=== PATIENT | female | born 1965 | race Caucasian/White ===

== ENCOUNTER 2016-11-06 04:47 | Emergency (ER) | payer OTHER ==
[~2016-11-06] VITALS: Ht 162.6 cm; Wt 154.2 kg
--- NOTE | ~2016-11-06 | EKG ---
[place] [address] [facility] [place] [address] ELECTROCARDIOGRAM REPORT Name: MG KEARNS Room #: [facility]P [id number] Admission: 11/06/16 Attend Phys: Discharge: 11/06/16 Date of : 67 Report #: [id number] THIS REPORT FOR: //name// [facility] ED Test Date: 2016-11-06 Test Time: 04:58:57 Pat Name: MG KEARNS Department: Room: Gender: F Laboratory Monitor: LYUDMILA : 1965 Requested By: Jazmin Mcdaniel Order Number: [id number] MD: Armand Denny Measurements Intervals [place] Rate: 65 P: 38 [place]: 153 QRS: 92 QRSD: 95 T: 57 QT: 410 QTc: 427 Interpretive Statements Sinus rhythm Borderline right axis deviation Poor R wave progression Compared to ECG 12/19/2015 13:36:52 [place] is shifted rightward Electronically Signed On 11-06-2016 9:07:15 CDT by Armand Denny [email or web address] <ELECTRONICALLY SIGNED> By: Armand Denny MD, [facility] 11/06/16 0907 D: 09/457 045 Armand Denny MD, FACC /EPI
[~2016-11-06 04:47] MED LIST: ACCUNEB0.63 MG/3 INH; ADVAIR 250-501 EACH INH; ADVAIRDISKUS; ALBUTEROL INH; ALBUTEROL2.5 MG/0.1 INH; ALBUTEROL2.5 MG/0.5 INH; ALBUTEROL2.5 MG/31 INH; ALLEGRA ALLERG180 MG PO; AMARYL2 M1 PO; AVELOX 400 MG400 M1; AVELOX 400 MG400 MG PO; BACTRIM DS TAB1 EACH PO; BROVANA15 MCG/2 M IH; BROVANA15 MCG/2 M INH; BUDESONIDE0.5 MG/2 M IH; BYETTA PEN 11 PENIN1 SUBQ; CARVEDILOL6.25 MG PO; CEFTIN500 MG PO; CLARITIN10 M2 PO; COMBIVENT; COMBIVENT RESPIM4 GM INH; COUMADIN 2 MG TA2 M1 PO; COUMADIN 5 MG TA5 M1 PO; DIOVAN320 MG PO; DOXYCYCLINE 10100 M2 PO; DOXYCYCLINE 10100 MG PO; DULERA 200 MCG/13 GM INH; DUONEB 2.5-0.5 M3 ML INH; DYAZIDE PO; FAMOTIDINE20 MG PO; FIBER LAX625 MG PO; FIBERCON625 M1 PO; FLEXERIL PO; FLONASE16 GM INH; FLONASE16 GM NASAL; GLUMETZA500 PO; HYDROCHLOROTHIA25 M1 PO; HYDROCODON-ACE1 EAC7 PO; HYDROXYZINE HCL25 M2 PO; IBUPROFEN 400400 M2 PO; LASIX 40 MG TAB40 M1 PO; LEVAQUIN 500 M500 M2 PO; LEVAQUIN 500 M500 M5 PO; LEVEMIR SUBQ; LEVEMIR100 UNIT/1 SUBQ; LIDODERM 5%1 PATCH TOP; LISINOPRIL10 MG PO; LISINOPRIL20 MG PO; LISINOPRIL40 MG PO; LISINOPRIL5 MG PO; LOVENOX SQ; LOVENOX SUBQ; MACROBID 100 M100 M1 PO; MELOXICAM7.5 MG PO; METFORMIN HCL500 MG PO; MILLIPRED DP5 M1 PO; MUCINEX TA600 MG/TA1 PO; MUCINEX TA600 MG/TA2 PO; NORCO 5-325 TA1 EACH PO; NOVOLOG FL100 UNIT/M SUBQ; NOVOLOG100 UNIT/1 SUBQ; NOVOLOG100 UNIT/M SUBQ; OS-CAL 500+D C1 EACH PO; OS-CAL 500+D31 EACH PO; PERCOCET; PERCOCET 5-3251 EACH PO; POTASSIUM20 PO; PREDNISONE 10 M10 M1; PREDNISONE 10 M10 M1 PO; PREDNISONE 10 M10 MG PO; PREDNISONE 20 M20 M1 PO; PREDNISONE 20 M20 MG PO; PREDNISONE 5 MG5 M1 PO; PREDNISONE 5 MG5 MG; PREDNISONE50 MG PO; PRENATAL; PROAIR HFA8.5 GM INH; PULMICORT0.5 MG/2 M INH; RANITIDINE 150150 M1 PO; SINGULAIR 10 MG10 M1 PO; SINGULAIR PO; SPIRIVA18 MCG INH; TESSALON PERLE100 M1 PO; TOUJEO SOL300 UNIT/1 SQ; TRAMADOL 50 MG50 MG PO; TRIAMTERENE-HC1 EAC1 PO; TUMS PO; TYLENOL325 MG PO; ULTRAM50 MG PO; VENTOLIN HFA INH8 GM INH; VICODIN 5-5001 EACH PO; VICODIN PO; VICTOZA0.6 MG/0.1 SUBQ; VITAMIN D250000 UNIT; VITAMIN E400 UNI3 PO; XOLAIR; XOLAIR IV; XOLAIR150 MG SUBQ; ZADITOR5 M1 OPHTHALMIC; ZOLAIR SUBQ; ZYRTEC10 M2 PO
[2016-11-06 05:26] LABS: HEMATOCRIT 42.3 % (37.0-47.0); HEMOGLOBIN 13.7 gm/dL (12.0-15.0); MCH 26.8 pg (26.0-34.0); MCHC 32.4 g/dL (28.0-37.0); MCV 82.6 fL (80.0-100.0); PLATELET COUNT 302 thou/uL (150-400); RBC 5.12 mil/uL (4.20-5.00); RDW 15.9 % (10.5-14.5); WBC 10.2 thou/uL (4.0-11.0)
[2016-11-06 05:28] LABS: MANUAL DIFF YES
[2016-11-06 05:38] LABS: ANION GAP 8 mmol/L (7-16); BUN 20 mg/dL (7-18); CALCIUM 9.9 mg/dL (8.5-10.1); CHLORIDE 88 mmol/L (98-107); CO2 31 mmol/L (21-32); CREATININE 1.3 mg/dL (0.6-1.0); SODIUM 127 mmol/L (136-145)
[2016-11-06 05:42] LABS: GLUCOSE 637 mg/dL (74-106)
[2016-11-06 05:43] LABS: TROPONIN-I < 0.04 ng/mL (<0.04-0.07)
[2016-11-06 05:55] LABS: URINE BILIRUBIN NEGATIVE (Negative); URINE BLOOD NEGATIVE (Negative); URINE COLOR COLORLESS; URINE GLUCOSE-RANDOM* 3+ (Negative); URINE KETONES NEGATIVE (Negative); URINE LEUKOCYTES-REFLEX NEGATIVE (Negative); URINE PROTEIN (DIPSTICK) NEGATIVE (Negative); URINE SPECIFIC GRAVITY <= 1.005 (1.003-1.035); URINE UROBILINOGEN 0.2 E.U./dl (0.2-1.0)
[2016-11-06 06:10] LABS: ANISOCYTOSIS SLIGHT; TOTAL CELL COUNT 100
== END 2016-11-06 08:56 | disposition home or self-care (01) ==
LOC: ER 04:47
PROVIDERS: Emergency Medicine
DX: E11.65 Type 2 diabetes mellitus with hyperglycemia (principal); R07.89 Other chest pain; J45.909 Unspecified asthma, uncomplicated; G47.30 Sleep apnea, unspecified; E66.9 Obesity, unspecified; K21.9 Gastro-esophageal reflux disease without esophagitis; Z86.2 Personal history of diseases of the blood and blood-forming organs and certain disorders involving the immune mechanism; Z86.14 Personal history of Methicillin resistant Staphylococcus aureus infection; Z86.711 Personal history of pulmonary embolism; Z79.4 Long term (current) use of insulin; Z91.040 Latex allergy status; Z88.7 Allergy status to serum and vaccine; Z88.5 Allergy status to narcotic agent; Z88.0 Allergy status to penicillin; Z91.011 Allergy to milk products

== ENCOUNTER 2017-05-15 16:43 | Emergency (ER) | payer OTHER ==
[~2017-05-15] VITALS: Ht 162.6 cm; Wt 181.4 kg
[2017-05-15 18:36] LABS: HEMOGLOBIN 13.2 gm/dL (12.0-15.0); MCH 26.5 pg (26.0-34.0); MCHC 32.3 g/dL (28.0-37.0); MCV 81.9 fL (80.0-100.0); RDW 14.9 % (10.5-14.5); WBC 12.6 thou/uL (4.0-11.0)
[2017-05-15 18:45] LABS: CREATININE 1.1 mg/dL (0.6-1.0)
[2017-05-15] MEDS ORDERED: NORCO 5-325 TA1 EACH PO (21:22)
[2017-05-15 22:18] VITALS: BP 110/62
== END 2017-05-15 22:20 | disposition home or self-care (01) ==
LOC: ER 16:43
PROVIDERS: Emergency Medicine
DX: S52.125A Nondisplaced fracture of head of left radius, initial encounter for closed fracture (principal); S81.812A Laceration without foreign body, left lower leg, initial encounter; E11.9 Type 2 diabetes mellitus without complications; J45.909 Unspecified asthma, uncomplicated; G47.30 Sleep apnea, unspecified; K21.9 Gastro-esophageal reflux disease without esophagitis; E66.9 Obesity, unspecified; Z86.2 Personal history of diseases of the blood and blood-forming organs and certain disorders involving the immune mechanism; Z86.14 Personal history of Methicillin resistant Staphylococcus aureus infection; Z68.44 Body mass index [BMI] 60.0-69.9, adult; Z91.040 Latex allergy status; Z88.5 Allergy status to narcotic agent; Z88.0 Allergy status to penicillin; Z88.7 Allergy status to serum and vaccine; Z91.011 Allergy to milk products; Z79.4 Long term (current) use of insulin; Z88.8 Allergy status to other drugs, medicaments and biological substances; V89.2XXA Person injured in unspecified motor-vehicle accident, traffic, initial encounter; Y93.89 Activity, other specified; Y92.89 Other specified places as the place of occurrence of the external cause; Y99.8 Other external cause status

== ENCOUNTER 2017-07-01 23:01 | Inpatient (IN) | payer OTHER ==
[~2017-07-01] VITALS: Ht 162.6 cm; Wt 147.8 kg
--- NOTE | ~2017-07-01 | EKG ---
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
--- NOTE | ~2017-07-01 | 2DMMODE ---
[facility] [place] [address] 2 D/M-MODE ECHOCARDIOGRAM Name: MG KEARNS Room #: 209-P ADM IN M.R.#: [id number] Admission: 07/02/17 Attend Phys: Shakeel Alba, Discharge: Date of : 67 Date of Service: 07/03/17 1221 Report #: [id number] THIS REPORT FOR: //name// APPROVED REPORT Study performed: 07/02/2017 10:43:39 EXAM: Comprehensive 2D, Doppler, and color-flow Echocardiogram Patient Location: Echo lab Room #: 209 Status: routine BSA: 2.40 HR: 90 bpm BP: 132/78 mmHg Other Information Study Quality: Fair Technically limited study due to body habitus, inability to position patient. Indications Diabetes Chest Pain Hypertension/HDD Echo Enhancing Agent Indication: Endocardial border delineation Agent(s) / Amount(s) Used: Optison 4 cc Left Ventricle Left ventricle is at the upper limits of normal. Regional wall motion is not well visualized but grossly normal. There is normal left ventricular wall thickness. The left ventricular systolic function is normal. The left ventricular ejection fraction is within the normal range. LVEF is 55-60%. The left ventricular diastolic function is normal. Right Ventricle Right ventricle is not well visualized. The right ventricle appears normal size. The right ventricular systolic function is normal. Atria The left atrium size is normal. The right atrium size is normal. [facility] [address] [place] [address] 2 D/M-MODE ECHOCARDIOGRAM Name: MG KEARNS Room #: 209-P ADM IN M.R.#: [id number] Admission: 07/02/17 Attend Phys: Shakeel Alba, Discharge: Date of : 67 Date of Service: 07/03/17 1221 Report #: [id number] Aortic Valve The aortic valve is not well visualized. The aortic valve appears normal in structure. No aortic regurgitation is present. There is no aortic valvular stenosis. Mitral Valve The mitral valve is normal in structure. There is no mitral valve regurgitation noted. No evidence of mitral valve stenosis. Tricuspid Valve The tricuspid valve is normal in structure. There is no tricuspid valve regurgitation noted. Pulmonic Valve The pulmonary valve is normal in structure. There is no pulmonic valvular regurgitation. Great Vessels The aortic root is normal in size. IVC is not well visualized. Pericardium There is no pericardial effusion. <Conclusion> The left ventricular systolic function is normal. Regional wall motion is not well visualized but grossly normal. LVEF 55-60%. Normal diastolic function The aortic valve appears normal in structure. No aortic regurgitation or stenosis The mitral valve is normal in structure. No mitral valve regurgitation noted. Pulmonary artery pressure could not be reliably ascertained There is no pericardial effusion. <ELECTRONICALLY SIGNED> By: Armand Denny MD, [facility] 07/03/17 122 122 20 Armand Denny MD, FAC /INF
--- NOTE | ~2017-07-01 | HC ---
[facility] [place] [address] CONSULTATION Name: MG KEARNS Room #: 209-P [facility] IN M.R.#: [id number] Admission: 07/02/17 Attend Phys: Shakeel Alba DO Discharge: 07/03/17 Date of : 67 Report #: [id number] THIS REPORT FOR: //name// CC: Ember Alba DATE OF SERVICE: 07/02/2017 HISTORY OF PRESENT ILLNESS: The patient is a 52-year-old female, came in with some fever, chills, shortness of breath and chest pain. I am asked to evaluate her for the chest pain. I apparently have seen her a couple of years ago, had an abnormal nuclear test and subsequently a cardiac catheterization. We are trying to obtain that record. But no intervention was undertaken. I believe it was an anterior infarct that was artifactual because of her body habitus. She had lost to follow up with me anyway. She does see Dr. Cordero. 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 Nonspecific EKG changes and negative troponin. Her H and H is 11.7 and 36.2. Her sugar is elevated at 370. Her white count was 15,000. Potassium 4.5, creatinine 1.2, glucose 410 and now 370, magnesium low at 1.7. The urinary tract UA looked unremarkable. Her white count is up to 17.2 this morning. Liver function tests are relatively unremarkable except mildly elevated alkaline phosphatase. She has had some nausea, vomiting, diarrhea the last couple of days and has been very sedentary. HOME MEDICATIONS: Lisinopril 40 b.i.d., HCTZ 25, hydrocodone, insulin, Victoza and had been on some Ceftin as well as prednisone, Lasix 40 mg, ibuprofen, Mirta, hydroxyzine p.r.n., recently started on tacrolimus 1 mg a day and Zyrtec 10, Singulair, Flonase, and Zaditor ophthalmic. ALLERGIES: TETANUS, CODEINE, PENICILLIN, LATEX AND ADHESIVE TAPE. SOCIAL HISTORY: She is with 4 children. No current alcohol or tobacco of significance. FAMILY HISTORY: Negative for premature coronary artery disease. REVIEW OF SYSTEMS: Negative with the exception as stated above and just extreme fatigue and weakness and she has been weaned off of the prednisone. PHYSICAL EXAMINATION: GENERAL: She is alert. She is still somewhat febrile. She does not feel well, she states. VITAL SIGNS: Blood pressure is 150/84, pulse is 110. HEENT: Eyes reveal xanthelasmas. Pharynx is clear. NECK: Shows preserved upstrokes without JVD or bruits. LUNGS: Do have diffuse wheezes throughout, predominantly end inspiratory. [facility] [address] [place] [address] CONSULTATION Name: MG KEARNS Room #: 209-P DIS IN M.R.#: [id number] Admission: 07/02/17 Attend Phys: Shakeel Alba DO Discharge: 07/03/17 Date of : 67 Report #: [id number] CARDIAC: Distant heart tones, S1, S2. ABDOMEN: Markedly obese and diffusely tender, but no rigidity or rebound. EXTREMITIES: Reveal some trace of edema. I cannot palpate the distal pulses. NEUROLOGIC: Intact. MUSCULOSKELETAL: Generalized arthritic changes. Mild valgus deformity of the knees. SKIN: Warm and dry without ulcer formation. ASSESSMENT: 1. Suspect possible febrile syndrome, viral. 2. Chest pain of unclear significance, possible consideration of pulmonary embolism (based on prior history of pulmonary embolism and had been very sedentary for the last 3-4 days). 3. Rule out coronary artery disease. 4. Hypertension. 5. Hypercholesterolemia. 6. Obesity. 7. Diabetes. RECOMMENDATIONS AND PLAN: We will obtain echo Doppler to assess left ventricular function, looking for right-sided enlargement. Repeat EKG. Troponin is negative, would do ultrasound of lower extremities and CTA of the chest to rule out a pulmonary embolism based on her history and states that this pain was somewhat reminiscent of the chest pain she had with her pulmonary embolism, which was 7-8 years ago. Consideration of nuclear stress testing if the above is all negative. I will review the films from 2 years ago; they are not available currently, but I expect to get the CDs today. I do not recall that she had any significant coronary artery disease, so coronary artery disease seems less likely, that things would have progressed in the last 2 years. We will continue to follow up with you. Thank you for allowing us to assist in the care of this patient. <ELECTRONICALLY SIGNED> By: Juan Rodríguez MD, [facility] 07/04/17899 52 Juan Rodríguez MD, FACC /nt
--- NOTE | ~2017-07-01 | EKG ---
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 : 1965 Requested By: Dante Tracey Order Number: [id number] MD: Armand Denny Measurements Intervals [place] Rate: 128 P: 47 [place]: 175 QRS: -46 QRSD: 82 T: 132 QT: 263 QTc: 384 Interpretive Statements Sinus tachycardia Left anterior fascicular block Poor R wave progression Nonspecific ST and T wave abnormality Compared to ECG 11/06/2016 04:58:57 Left anterior fascicular block now present Nonspecific change in the ST and T-wave segments Electronically Signed On 07-02-2017 8:00:01 CDT by Armand Denny [email or web address] <ELECTRONICALLY SIGNED> By: Armand Denny MD, [facility] 07/02/1700 2310 2310 Armand Denny MD, [facility] /EPI
[2017-07-01 23:09] VITALS: BP 157/88
[2017-07-01] MEDS ORDERED: LANTUS100 UNIT/M SUBQ (23:18)
[2017-07-01] MEDS ORDERED: ZYRTEC10 M5 PO (23:19)
[2017-07-01] MEDS ORDERED: ASTAGRAF XL1 MG PO (23:19)
[2017-07-01 23:48] LABS: ABSOLUTE NEUTROPHILS 15.4 thou/uL (1.4-8.2); BASOPHILS 0.2 % (0.0-2.0); EOSINOPHILS 2.9 % (0.0-3.0); HEMATOCRIT 39.2 % (37.0-47.0); LYMPHOCYTES 4.2 % (24.0-44.0); MCH 26.9 pg (26.0-34.0); MCHC 33.2 g/dL (28.0-37.0); MONOCYTES 3.2 % (1.0-8.0); PLATELET COUNT 270 thou/uL (150-400); POLYS 89.5 % (36.0-66.0); RBC 4.84 mil/uL (4.20-5.00); RDW 14.4 % (10.5-14.5); WBC 17.2 thou/uL (4.0-11.0)
[2017-07-01 23:53] LABS: ANION GAP 9 mmol/L (7-16); BUN 9 mg/dL (7-18); CALCIUM 9.1 mg/dL (8.5-10.1); CHLORIDE 95 mmol/L (98-107); CO2 27 mmol/L (21-32); CREATININE 1.2 mg/dL (0.6-1.0); GLUCOSE 379 mg/dL (74-106); POTASSIUM 4.6 mmol/L (3.5-5.1); SODIUM 131 mmol/L (136-145)
[2017-07-02] VITALS (7 sets, daily range): BP systolic 123–143; BP diastolic 66–88
[2017-07-02] LABS: ALBUMIN 2.9 g/dL (3.4-5.0); LIPASE 210 U/L (73-393); MAGNESIUM 1.1 mg/dL (1.8-2.4); SGOT 29 U/L (15-37); SGPT 48 U/L (30-65); TOTAL BILIRUBIN 0.6 mg/dL (<0.1-1.0); TOTAL PROTEIN 7.2 g/dL (6.4-8.2); TROPONIN-I < 0.04 ng/mL (<0.06)
[2017-07-02 00:08] LABS: URINE BILIRUBIN NEGATIVE (Negative); URINE BLOOD NEGATIVE (Negative); URINE CLARITY CLEAR; URINE COLOR YELLOW; URINE GLUCOSE-RANDOM* 3+ (Negative); URINE KETONES 1+ (Negative); URINE LEUKOCYTES-REFLEX NEGATIVE (Negative); URINE NITRITE-REFLEX NEGATIVE (Negative); URINE PROTEIN (DIPSTICK) TRACE (Negative); URINE SPECIFIC GRAVITY 1.015 (1.005-1.035); URINE UROBILINOGEN 0.2 E.U./dl (0.2-1.0)
[2017-07-02 04:05] LABS: HEMATOCRIT 36.2 % (37.0-47.0); HEMOGLOBIN 11.7 gm/dL (12.0-15.0); MCH 26.5 pg (26.0-34.0); MCHC 32.3 g/dL (28.0-37.0); MCV 81.8 fL (80.0-100.0); RBC 4.42 mil/uL (4.20-5.00); RDW 14.5 % (10.5-14.5); WBC 15.3 thou/uL (4.0-11.0)
[2017-07-02 04:15] LABS: CALCIUM 8.5 mg/dL (8.5-10.1); CREATININE 1.2 mg/dL (0.6-1.0); MAGNESIUM 1.6 mg/dL (1.8-2.4); POTASSIUM 4.5 mmol/L (3.5-5.1)
[2017-07-02 11:19] LABS: CHOLESTEROL 182 mg/dL (<200); HDL CHOLESTEROL 28 mg/dL (>40); LDL CHOLESTEROL 124 mg/dL (<100); TC:HDL 6.5 Ratio (Not establshd); TRIGLYCERIDE 150 mg/dL (<150); VLDL 30 mg/dL (<40)
[2017-07-03 04:00] VITALS: BP 120/62
[2017-07-03 08:00] VITALS: BP 131/82
[2017-07-03 12:00] VITALS: BP 142/81
[2017-07-03 12:32] VITALS: BP 142/81
== END 2017-07-03 13:43 | disposition home or self-care (01) | DRG 189 ==
LOC: ER 23:01 → EROBS 07-02 00:21 → 2N 07-02 00:21 → EDTRNSPTSTS 07-03 13:37 → ENTRNSPT 07-03 13:37 → 2N 07-03 13:43
PROVIDERS: Emergency Medicine; Internal Medicine Cardiovascular Disease; Nurse Practitioner Family
DX: J96.00 Acute respiratory failure, unspecified whether with hypoxia or hypercapnia (principal); I26.99 Other pulmonary embolism without acute cor pulmonale; E87.1 Hypo-osmolality and hyponatremia; Z68.43 Body mass index [BMI] 50.0-59.9, adult; R07.89 Other chest pain; J45.909 Unspecified asthma, uncomplicated; K21.9 Gastro-esophageal reflux disease without esophagitis; E83.42 Hypomagnesemia; E11.65 Type 2 diabetes mellitus with hyperglycemia; E78.00 Pure hypercholesterolemia, unspecified; D64.9 Anemia, unspecified; G47.33 Obstructive sleep apnea (adult) (pediatric); D72.829 Elevated white blood cell count, unspecified; I77.6 Arteritis, unspecified; E66.01 Morbid (severe) obesity due to excess calories; Z79.4 Long term (current) use of insulin; Z86.711 Personal history of pulmonary embolism; Z88.0 Allergy status to penicillin; Z88.7 Allergy status to serum and vaccine; Z88.6 Allergy status to analgesic agent; Z91.040 Latex allergy status; Z91.011 Allergy to milk products; Z79.52 Long term (current) use of systemic steroids; Z83.3 Family history of diabetes mellitus; Z82.49 Family history of ischemic heart disease and other diseases of the circulatory system; Z82.5 Family history of asthma and other chronic lower respiratory diseases
CPT/HCPCS: 10081